=== PATIENT | female | born 1995 ===

== ENCOUNTER 2025-06-05 17:25 | Inpatient (IN) | payer BC, SELFPAY ==
[2025-06-05 17:52] LABS: Hematocrit 38.0 % (37.0-47.0); Hemoglobin 13.6 g/dL (12.0-16.0); Mean Corp Hgb Conc. 35.8 g/dL (33.0-37.0); Mean Corpuscular Volume 85.2 fL (81.0-99.0); Nucleated Red Blood Cells % 0 %; Platelet Count 298 10^3/uL (130-400); Red Cell Dist. Width 12.2 % (11.5-14.5)
[2025-06-05] MEDS: FENTANYL/BUPIVACAINE 100 EPIDURAL (18:05)
[2025-06-05] MEDS: SUBLIMAZE 100 MCG EPIDURAL (18:05)
[2025-06-05 20:13] VITALS: BP 119/80; BMI 32.6
[2025-06-06 04:44] LABS: Hematocrit 35.6 % (37.0-47.0); Hemoglobin 12.5 g/dL (12.0-16.0)
[2025-06-06] MEDS: MOTRIN 600 MG PO ×2 (10:21→20:23)
[2025-06-08 15:21] LABS: Syphilis/T. pallidum Ab Reflex Negative (Negative)
== END 2025-06-07 12:21 | disposition home or self-care (01) | DRG 807 ==
LOC: LDRP 17:25
PROVIDERS: ADMITTING PHYSICIAN Obstetrics & Gynecology
PROC: 10E0XZZ Delivery of Products of Conception, External Approach (ICD-10-PCS; 2025-06-05)
DX: O48.0 Post-term pregnancy (principal); Z37.0 Single live birth; O69.81X0 Labor and delivery complicated by cord around neck, without compression, not applicable or unspecified; Z3A.40 40 weeks gestation of pregnancy
CPT/HCPCS: 85014; 85018; 85025; 86780; 86850; 86900; 86901